=== PATIENT | female | born 1965 | race Caucasian/White ===

== ENCOUNTER 2023-07-08 08:40 | Observation (INO) | payer MEDICARE, MEDICAID, SELFPAY ==
[2023-07-08] VITALS (13 sets, daily range): BP systolic 148–205; BP diastolic 61–74; PULSE 45–55; RESP 18–20; TEMP 36.6–36.8; O2SAT 91–97; BMI 75.5
--- NOTE | 2023-07-08 08:44 | CTR_ITS ---
PROCEDURE INFORMATION: Exam: CT Head Without Contrast Exam date and time: 07/08/2023 8:45 AM Age: 57 years old Clinical indication: Stroke-like symptoms; Left upper extremity numbness/paresthesia; Additional info: Headache; Left arm numbness TECHNIQUE: Imaging protocol: Computed tomography of the head without contrast. Radiation optimization: All CT scans at this facility use at least one of these dose optimization techniques: automated exposure control; mA and/or kV adjustment per patient size (includes targeted exams where dose is matched to clinical indication); or iterative reconstruction. Other technique: STROKE PROTOCOL was implemented. COMPARISON: No relevant prior studies available. RADIATION DOSE METRICS: Total DLP (mGy-cm): 1131.8 FINDINGS: Brain: There is no evidence of acute parenchymal hemorrhage, extra-axial collection, or acute infarction. There is no mass effect, midline shift, or downward herniation. Cerebral ventricles: No ventriculomegaly. Paranasal sinuses: Visualized sinuses are unremarkable. No fluid levels. Mastoid air cells: Visualized mastoid air cells are well aerated. Bones/joints: Unremarkable. No acute fracture. Soft tissues: Unremarkable. CT/CT head thrombolytic [id number] IMPRESSION: No acute intracranial abnormality. ASSESSMENT: ASPECTS ([place] Stroke Program Early CT Score) is 10.
--- NOTE | 2023-07-08 08:48 | ECG_ITS ---
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 Measurements Intervals [place] Rate: 52 P: 27 MN: 174 QRS: 94 QRSD: 93 T: 38 QT: 415 QTc: 386 Interpretive Statements SINUS BRADYCARDIA BORDERLINE RIGHT AXIS DEVIATION [QRS AXIS > 90] LOW QRS VOLTAGE IN PRECORDIAL LEADS [QRS DEFLECTION < 1.0 mV IN CHEST LEADS] SEPTAL MYOCARDIAL INFARCTION , PROBABLY OLD [40+ ms Q WAVE IN V1/V2] Compared to ECG 10/10/2016 13:02:20 Sinus rhythm no longer present Myocardial infarct finding still present Electronically Signed On 07-08-2023 10:04:12 SEATING AND MOBILITY TECHNOLOGIST by Prakash Nugent M.D. [email or web address] [email or web address] [email or web address]/store/[id number]
--- NOTE | 2023-07-08 08:55 | W.ED.NEUROSD ---
HPI - Neuro Symptoms/Deficit General: Chief Complaint: Neuro Symptoms/Deficit Stated Complaint: HEADACHE; LEFT ARM NUMBNESS Time Seen by Provider: 07/08/23 08:49 Source: patient Mode of arrival: EMS History of Present Illness: 57-year-old female presents emergency room with complaints of left-sided numbness and weakness. She went to bed last night at midnight was her usual state this morning woke up at around 7 AM with presence of symptoms chest discomfort pain into the left arm some numbness in the left arm face she feels like she has some weakness in the left arm and leg. Blood glucose 111. Patient previously had a CVA in December 2022 at which time she received tPA. EMS reported left arm droop but did not note any on exam Onset (ago): hour(s) (8 hours 40 minutes) Time: 08:40 Last Observed Normal: 00:00 Location: left face and left arm Severity: mild Quality: weak and numb Relieving factors: none Exacerbating factors: none Context: other (Wake-up symptoms) On Anticoagulants: No Associated symptoms: Deny chest pain, cough, diaphoresis, fevers/chills, headache(s), anorexia, malaise, nausea, seizures, short of breath, syncope, tingling, vertigo, vomiting or weakness Treatments Prior to Arrival: none Review of Systems Const: Denies: fever(s), chills, malaise or diaphoresis Card: Denies: chest pain or syncope Resp: Denies: dyspnea GI: Denies: abdominal pain, nausea or vomiting : Denies: dysuria, urinary frequency or urinary urgency Musc: Denies: neck pain or back pain Skin/Breast: Denies: rash Neuro: Reports: numbness in extremities and weakness in extremities; Denies: headache(s) or vertigo [facility] ED PFSH: Medical History Diabetes HTN (hypertension) NIH stroke score NIHSS: Level Of Consciousness - 1a: 0 Level Of Consciousness Questions - 1b: Both Correct Level Of Consciousness Commands - 1c: Both Correct Best Gaze - 2: Normal Visual [place] - 3: No Visual Loss Facial Palsy - 4: Normal Motor Arm Right - 5: No Drift Motor Arm Left - 5: No Drift Motor Leg Right - 6: No Drift Motor Leg Left - 6: No Drift Limb Ataxia - 7: Present In One Limb Sensory - 8: Mild To Moderate Loss Best Language - 9: No Aphasia Dysarthia - 10: Normal Extinction And Inattention - 11: 0 Score: Total Score: 2 Physical Exam Const: COMMON NORMALS: no acute distress GENERAL APPEARANCE: cooperative and comfortable ORIENTATION/CONSCIOUSNESS: Yes awake, Yes oriented to person, Yes oriented to place and Yes oriented to time HENMT: COMMON NORMALS: normocephalic, atraumatic and hearing grossly normal bilaterally HEAD & SCALP: normocephalic and atraumatic Resp: COMMON NORMALS: normal respiratory effort, No retractions, No use of accessory muscles and clear to auscultation bilaterally AUSCULTATION: clear to auscultation bilaterally Cardio: COMMON NORMALS: regular rate, regular rhythm and No murmurs present (Cardio) RATE: regular rate RHYTHM: regular rhythm GI: COMMON NORMALS: Soft to palpation and No hepatosplenomegaly present AUSCULTATION: Yes normoactive bowel sounds PALPATION: Yes Soft to palpation, No Tenderness to palpation present (GI), No Guarding due to palpation present (GI) and Yes No hepatosplenomegaly present Extremity: COMMON NORMALS: normal to inspection, capillary refill normal, no clubbing, cyanosis or edema, no calf tenderness and no pedal edema Neuro: SENSORIUM/ORIENTATION: Yes oriented to person, Yes oriented to place and Yes oriented to time Skin: COMMON NORMALS: no rashes or lesions noted GENERAL SKIN EXAM: no rashes or lesions noted Course Vital Signs: Vital signs: Vital Signs Temperature 97.7 F 07/09/23 07:57 Pulse Rate 47 L 07/09/23 08:18 Respiratory Rate 16 07/09/23 08:18 Blood Pressure 141/78 07/09/23 07:57 Pulse Oximetry 97 07/09/23 11:07 Oxygen Delivery Me thod Nasal Cannula 07/09/23 08:18 Oxygen Flow Rate 3 07/09/23 08:18 MDM - Neuro Symptoms/Deficit Medical Decision Making Stroke score of ana was 2 earlier was likely higher. Not a candidate for thrombolytics or embolectomy. Will admit for further evaluation and secondary stroke prevention discussed with hospitalist orders written. Patient Because she still is having some residual symptoms. Medical Records I reviewed the patient's medical records. Lab Data I reviewed the patient's lab results. 07/09/23 02:15 07/09/23 02:[address] 07/08/23 08:44 IMPRESSION: No acute intracranial abnormality. ASSESSMENT: ASPECTS ([place] Stroke Program Early CT Score) is 10. Laboratory Results WBC 8.18 10^3/uL (3.29-11.43) 07/08/23 08:59 RBC 4.29 10^6/uL (3.85-5.65) 07/08/23 08:59 Hgb 13.00 g/dL (11.27-16.99) 07/08/23 08:59 Hct 39.6 % (36-47) 07/08/23 08:59 MCV 92.3 fl (85-98) 07/08/23 08:59 MCH 30.3 pg (27-33) 07/08/23 08:59 MCHC 32.8 g/dL (30-55) 07/08/23 08:59 RDW 13.1 % (12.1-15.1) 07/08/23 08:59 Plt Count 263 10^3/cmm (157-399) 07/08/23 08:59 MPV 10.7 fL (7.4-10.4) H 07/08/23 08:59 Neut % (Auto) 60.0 % 07/08/23 08:59 Lymph % (Auto) 28.1 % 07/08/23 08:59 [place] % (Auto) 8.2 % 07/08/23 08:59 Eos % (Auto) 2.6 % 07/08/23 08:59 Baso % (Auto) 0.6 % 07/08/23 08:59 Neut # (Auto) 4.91 10^3/uL (1.8-7.7) 07/08/23 08:59 Lymph # (Auto) 2.3 10^3/uL (0.8-4.8) 07/08/23 08:59 [place] # (Auto) 0.7 10^3/uL (0.2-0.9) 07/08/23 08:59 Eos # (Auto) 0.2 10^3/uL (0.0-0.8) 07/08/23 08:59 Baso # (Auto) 0.1 10^3/uL (0.0-0.1) 07/08/23 08:59 Nucleated RBC % (auto) 0 % 07/08/23 08:59 Nucleated RBCs # 0.0 /100WBC 07/08/23 08:59 PT 13.60 SECONDS (12.1-14.9) 07/08/23 08:59 INR 1.01 (0.8-1.2) 07/08/23 08:59 APTT 24.6 SECONDS (23.9-36.7) 07/08/23 08:59 Sodium 142 mmol/L (136-145) 07/08/23 08:59 Potassium 3.9 mmol/L (3.5-5.1) 07/08/23 08:59 Chloride 107 mmol/L (98-107) 07/08/23 08:59 Carbon Dioxide 25 mmol/L (22-29) 07/08/23 08:59 Anion Gap 13.9 (5-19) 07/08/23 08:59 BUN 14 mg/dL (6-20) 07/08/23 08:59 Creatinine 0.7 mg/dL (0.5-0.9) 07/08/23 08:59 GFR Calculation 85.6 mL/min (90-130) L 07/08/23 08:59 Glucose 109 mg/dL (65-115) 07/08/23 08:59 Estimat Average Glucose 111 07/08/23 08:59 Hemoglobin A1c 5.5 % (4.0-6.0) 07/08/23 08:59 Calculated Osmolality 295 mOsm/kg (285-295) 07/08/23 08:59 Calcium 8.5 mg/dL (8.5-10.5) 07/08/23 08:59 Total Bilirubin 0.5 mg/dL (0.15-1.2) 07/08/23 08:59 AST 11 U/L (0-32) 07/08/23 08:59 ALT 16 U/L (0-33) 07/08/23 08:59 Alkaline Phosphatase 51 U/L (35-105) 07/08/23 08:59 Troponin T Baseline 7 ng/L (0-10) 07/08/23 08:59 Total Protein 6.8 g/dL (6.6-8.7) 07/08/23 08:59 Albumin 3.4 g/dL (3.5-5.2) L 07/08/23 08:59 Globulin 3.4 g/dL (1.3-4.6) 07/08/23 08:59 Urine Color Straw (Yellow) 07/08/23 09:29 Urine Appearance Clear (CLEAR) 07/08/23 09:29 Urine pH 5 (5-7) 07/08/23 09:29 Ur Specific [place] 1.015 (1.005-1.030) 07/08/23 09:29 Urine Protein Neg (Negative) 07/08/23 09:29 Urine Glucose (UA) Norm (Normal) 07/08/23 09:29 Urine Ketones Negative (Negative) 07/08/23 09:29 Urine Blood Neg (Negative) 07/08/23 09:29 Urine Nitrate Negative (Negative) 07/08/23 09:29 Urine Bilirubin Neg (Negative) 07/08/23 09:29 Urine Urobilinogen Norm mg/dL (Negative) 07/08/23 09:29 Ur Leukocyte Esterase Negative (Negative) 07/08/23 09:29 Urine Opiates Screen Positive ng/mL (Negative) H 07/08/23 09:29 Ur Barbiturates Screen Negative ng/mL (Negative) 07/08/23 09:29 Ur Phencyclidine Scrn Negative ng/mL (Negative) 07/08/23 09:29 Ur Amphetamines Screen Negative ng/mL (Negative) 07/08/23 09:29 U Benzodiazepines Scrn Negative ng/mL (Negative) 07/08/23 09:29 Urine Cocaine Screen Negative ng/mL (Negative) 07/08/23 09:29 U Marijuana (THC) Screen Negative ng/mL (Negative) 07/08/23 09:29 All radiology interpretation(s) finalized by discharge Discharge Plan Discharge Patient Disposition: Admitted As Inpatient Admit Provider: Coco Hassan Clinical Impression: Transient cerebral ischemia Condition: Stable Coding Level of Care Code ED Wrapping Machine Operator for Idania Kennedy
[2023-07-08 09:04] LABS: Basophils # 0.1 10^3/uL (0.0-0.1); Basophils % 0.6 %; Eosinophils # 0.2 10^3/uL (0.0-0.8); Eosinophils % 2.6 %; Hematocrit 39.6 % (36-47); Lymphocytes # 2.3 10^3/uL (0.8-4.8); Lymphocytes % 28.1 %; Mean Corpuscular HGB Conc 32.8 g/dL (30-55); Mean Corpuscular Hemoglobin 30.3 pg (27-33); Mean Corpuscular Volume 92.3 fl (85-98); Mean Platelet Volume 10.7 fL (7.4-10.4); Monocytes # 0.7 10^3/uL (0.2-0.9); Monocytes % 8.2 %; Neutrophils # 4.91 10^3/uL (1.8-7.7); Nucleated Red Blood Cells % 0 %; Platelet Count 263 10^3/cmm (157-399); Red Blood Count 4.29 10^6/uL (3.85-5.65); Red Cell Distribution Width 13.1 % (12.1-15.1); White Blood Count 8.18 10^3/uL (3.29-11.43)
[2023-07-08 09:15] LABS: Partial Thromboplastin Time 24.6 SECONDS (23.9-36.7)
[2023-07-08 09:24] LABS: Alanine Aminotransferase 16 U/L (0-33); Albumin Level 3.4 g/dL (3.5-5.2); Alkaline Phosphatase 51 U/L (35-105); Anion Gap 13.9 (5-19); Aspartate Amino Transferase 11 U/L (0-32); Blood Urea Nitrogen 14 mg/dL (6-20); Calcium 8.5 mg/dL (8.5-10.5); Carbon Dioxide 25 mmol/L (22-29); Chloride 107 mmol/L (98-107); Globulin 3.4 g/dL (1.3-4.6); Glomerular Filtration Rate 85.6 mL/min (90-130); Glucose 109 mg/dL (65-115); Osmolality Calculated 295 mOsm/kg (285-295); Potassium 3.9 mmol/L (3.5-5.1); Sodium 142 mmol/L (136-145); Total Bilirubin 0.5 mg/dL (0.15-1.2); Total Protein 6.8 g/dL (6.6-8.7)
--- NOTE | 2023-07-08 09:28 | PC.NURSE ---
PT CALLED REQUESTING PT BE TRANSFERRED TO [facility] DUE TO HER DOCTOR BEING THERE. PT NOTIFIED OF PROCEDURE FOR TRANSFER. PT STILL REQUESTING TO BE TRANSFERRED AND STATED THEY KNOW WHAT TO DO UP THERE.
[2023-07-08 09:34] LABS: Add Urine Microscopic? NO; Charge for UA Resulting for Rev
[2023-07-08 09:38] LABS: Bilirubin Urine Neg (Negative); Blood Urine Neg (Negative); Glucose Urine UA Norm (Normal); Ketones Urine Negative (Negative); Leukocyte Esterase Urine Negative (Negative); Nitrate Urine Negative (Negative); Protein Urine Neg (Negative); Specific Gravity, Urine 1.015 (1.005-1.030); Urine Appearance Clear (CLEAR); Urine Color Straw (Yellow); Urobilinogen Urine Norm (Negative); pH Urine 5 (5-7)
[2023-07-08 09:46] LABS: Amphetamines Screen Urine Negative (Negative); Barbiturates Screen Urine Negative (Negative); Benzodiazepines Screen Urine Negative (Negative); Cocaine Screen Urine Negative (Negative); Opiate Screen Urine Positive (Negative); PCP Screen Urine Negative (Negative); THC Screen Urine Negative (Negative)
[2023-07-08 10:00] LABS: INR 1.01 (0.8-1.2)
[2023-07-08 10:11] LABS: Troponin(5th) Baseline 7 ng/L (0-10)
--- NOTE | 2023-07-08 10:37 | PC.PHAR ---
Addendum entered by Pamela Obrien 07/08/23 11:13: [facility] [phone] Original Note: pt states she takes care of her own medications-pt states she ran out of her metoprolol succ er 50mg daily about a month ago ext shows last filled 03/02/23 30d/s pt states she has been taking her husbands metoprolol tartrate 50mg qam pts husbands paulie moya bottle had tartrate 50mg bid-pt had kcl 10meq daily bottle with her pt states she takes 2 tabs (=20meq) daily-pt states she takes lasix 20mg qam ext doesnt show when last filled-cymbalta 60mg bid filled last in 2021 at [facility] [phone] called not open on weekends to verify if filled more recently pt states takes 60mg daily-ozempic last filled jan 2022 [facility] [place]-notes are made in the pharmacy comments
--- NOTE | 2023-07-08 11:51 | ECG_ITS ---
[facility] Test Date: 2023-07-08 Pat Name: Miri Sanchez Department: Room: 271 Gender: Female Ship Manager: : 1965 Requested By: Sudhakar Posadas Order Number: [id number] Christina MD: Prakash Nugent M.D. Measurements Intervals [place] Rate: 49 P: 9 [place]: 172 QRS: 48 QRSD: 84 T: 51 QT: 418 QTc: 378 Interpretive Statements SINUS BRADYCARDIA WITH OCCASIONAL VENTRICULAR PREMATURE COMPLEXES LOW QRS VOLTAGE IN PRECORDIAL LEADS [QRS DEFLECTION < 1.0 mV IN CHEST LEADS] ANTEROSEPTAL MYOCARDIAL INFARCTION , PROBABLY OLD [40+ ms Q WAVE IN V1-V4] Compared to ECG 07/08/2023 08:57:44 Ventricular premature complex(es) now present Myocardial infarct finding still present Electronically Signed On 07-10-2023 9:39:47 WILDLIFE BIOSTATION RESEARCH ECOLOGIST by Prakash Nugent M.D. [id number]
--- NOTE | 2023-07-08 12:48 | P.HP_ITS ---
Providers/Chief Complaint 2 Admitting Physician: Coco Hassan MD Primary Care Provider: Kendall Toro MD Chief Complaint: HEADACHE; LEFT ARM NUMBNESS History of Present Illness Miri Sanchez is a 57 year old female with history of stroke status post tPA 2 years ago presented today with chief complaint of left-sided numbness around her face and left shoulder that prompted her visit to the ER she was was not considered tPA candidate because her NIH is 2 and unknown last known well time. By the time I am seeing her she is not experiencing any symptoms NIH is 0 She is hemodynamic stable other than bradycardia. She is diabetic takes Ozempic. She is attending birthday of her daughter here otherwise lives in [place]. Hemodynamically stable I requested PT OT and echo. No active chest pain shortness of breath or recent fever. No active diarrhea. Good strength to upper and lower extremities. Review of Systems 2 Const: Denies: fever(s) Eyes: Denies: change in vision ENMT: Denies: throat pain Card: Denies: chest pain Resp: Denies: dyspnea GI: Denies: abdominal pain : Denies: flank pain Musc: Denies: neck pain Skin/Breast: Denies: rash Neuro: Reports: numbness in extremities; Denies: headache(s) Psych: Denies: anxiety Medications/Allergies Home Medications Medication Instructions Recorded Confirmed Last Taken Type atorvastatin 40 mg tablet 40 mg PO BEDTIME 07/08/23 07/08/23 Unknown History bupropion HCl 150 mg 24 hr tablet, 450 mg PO QAM 07/08/23 07/08/23 07/08/23 History extended release duloxetine 60 mg capsule,delayed 60 mg PO QAM 07/08/23 07/08/23 Unknown History release (Cymbalta) furosemide 20 mg tablet (Lasix) 20 mg PO QAM 07/08/23 07/08/23 Unknown History ibuprofen 200 mg tablet 800 mg PO TID PRN Pain 07/08/23 07/08/23 Unknown History metoprolol succinate 50 mg 50 mg PO QAM 07/08/23 07/08/23 1 Month Ago History tablet,extended release 24 hr ~06/09/23 out for a month metoprolol tartrate 50 mg tablet 50 mg PO QAM 07/08/23 07/08/23 Unknown History potassium chloride 10 mEq 20 meq PO QAM 03/07/0107/08/23 07/08/23 History tablet,extended release semaglutide 0.25 mg or 0.5 mg (2 0.8 mg SUBCUT Q7D 07/08/23 07/08/23 Unknown History mg/3 mL) subcutaneous pen injector (Ozempic) Allergies Allergy/AdvReac Type Severity Reaction Status Date / Time hydromorphone [From Dilaudid] Allergy ADR-Shakine Verified 07/08/23 09:01 ss PFSH Acute 2 PFSH: Medical History Diabetes HTN (hypertension) Vitals/I&O/Wt Last Vital Signs Temp 98.1 F 07/08/23 08:54 Pulse 45 L 07/08/23 11:09 Resp 20 H 07/08/23 08:54 BP 148/61 07/08/23 11:09 Pulse Ox 91 07/08/23 11:09 O2 Del Method Room Air 07/08/23 11:00 Weight last 48 hrs Weight 184.612 kg Physical Exam 2 Narrative: Analgesia Awake and alert Morbid obese Good strength upper lower extremities Pleasant Awake and alert Bradycardia Mild hypertension Abdomen distended nontender Pleasant cooperative Nonfocal neuroexam Data 07/08/23 08:59 07/08/23 08:59 A&P Assessment and plan (1) TIA (transient ischemic attack): Plan TIA Start aspirin and Plavix Check A1c level B12 and TSH Likely will be able to discharge by tomorrow Check echo Hold beta-rin for bradycardia She is full code Cardiac consistent carb diet DVT prophylaxis added Type 2 diabetes Check A1c level, add medium dose sliding Hypertension: I will hold off on metoprolol for now we will add lisinopril which will be more beneficial considering history of diabetes Attestations 2 Medical Necessity Statement*: Discharge within 48 hours anticipated Diagnoses TIA (transient ischemic attack) G45.9
[2023-07-08] MEDS: acetaminophen 500 mg Tablet PO ×2 (13:51→20:23)
[2023-07-08] MEDS: enoxaparin 40 mg/0.4 mL Syringe SUBCUT (13:52)
[2023-07-08 14:21] LABS: Vitamin B12 262 pg/mL (232-1245)
[2023-07-08 14:25] LABS: Estmated Average Glucose 111; Hemoglobin A1C 5.5 % (4.0-6.0)
[2023-07-08] MEDS: lisinopril 10 mg Tablet PO (16:01)
[2023-07-08 16:37] LABS: Glucose Point of Care 113 mg/dL (70-110)
--- NOTE | 2023-07-08 17:24 | ECG_ITS ---
[facility] Test Date: 2023-07-08 Pat Name: Miri Sanchez Department: Room: 271 Gender: Female Advertising Coordinator: : 1965 Requested By: Sudhakar Posadas Order Number: [id number] Christina MD: Prakash Nugent M.D. Measurements Intervals [place] Rate: 45 P: 41 [place]: 160 QRS: 26 QRSD: 98 T: 40 QT: 447 QTc: 389 Interpretive Statements SINUS BRADYCARDIA LOW QRS VOLTAGE IN PRECORDIAL LEADS [QRS DEFLECTION < 1.0 mV IN CHEST LEADS] ANTERIOR MYOCARDIAL INFARCTION , PROBABLY OLD [40+ ms Q WAVE AND/OR ST/T ABNORMALITY IN V3/V4] Compared to ECG 07/08/2023 14:28:34 Ventricular premature complex(es) no longer present Myocardial infarct finding still present Electronically Signed On 07-10-2023 9:38:55 SLUBBER TENDER by Prakash Nugent M.D. [id number]
[2023-07-08 21:29] LABS: Glucose Point of Care 91 mg/dL (70-110)
[2023-07-09] VITALS: BP 145/66; PULSE 46; RESP 17; TEMP 36.5; O2SAT 99
[2023-07-09 03:46] VITALS: BP 155/67; PULSE 46; RESP 18; TEMP 36.5; O2SAT 99
[2023-07-09 04:21] LABS: Basophils % 0.5 %; Eosinophils # 0.2 10^3/uL (0.0-0.8); Eosinophils % 2.7 %; Lymphocytes # 2.9 10^3/uL (0.8-4.8); Lymphocytes % 38.9 %; Mean Corpuscular HGB Conc 31.6 g/dL (30-55); Mean Corpuscular Hemoglobin 30.1 pg (27-33); Mean Corpuscular Volume 95.2 fl (85-98); Mean Platelet Volume 12.1 fL (7.4-10.4); Monocytes # 0.7 10^3/uL (0.2-0.9); Monocytes % 9.6 %; Neutrophils # 3.55 10^3/uL (1.8-7.7); Nucleated Red Blood Cells % 0 %; Platelet Count 229 10^3/cmm (157-399); Red Blood Count 3.99 10^6/uL (3.85-5.65); Red Cell Distribution Width 13.2 % (12.1-15.1)
[2023-07-09 04:50] LABS: Anion Gap 11.4 (5-19); Blood Urea Nitrogen 16 mg/dL (6-20); Calcium 8.4 mg/dL (8.5-10.5); Carbon Dioxide 26 mmol/L (22-29); Chloride 106 mmol/L (98-107); Creatinine Clr Calc Pharmacy 121.0311; Glomerular Filtration Rate 73.4 mL/min (90-130); Glucose 79 mg/dL (65-115); Magnesium 2.1 mg/dL (1.7-2.3); Osmolality Calculated 290 mOsm/kg (285-295); Phosphorus 3.9 mg/dL (2.5-4.5); Potassium 3.4 mmol/L (3.5-5.1); Sodium 140 mmol/L (136-145)
[2023-07-09 06:05] VITALS: PULSE 46
[2023-07-09 06:23] VITALS: BMI 75.5
[2023-07-09 07:24] LABS: Glucose Point of Care 91 mg/dL (70-110)
[2023-07-09 07:57] VITALS: BP 141/78; PULSE 47; RESP 20; TEMP 36.5; O2SAT 99
[2023-07-09] MEDS: aspirin 81 mg EC Tablet PO (08:07)
[2023-07-09] MEDS: clopidogrel 75 mg Tablet PO (08:07)
[2023-07-09] MEDS: lisinopril 10 mg Tablet PO (08:07)
[2023-07-09 08:18] VITALS: PULSE 47; RESP 16; O2SAT 99
--- NOTE | 2023-07-09 10:23 | P.DS_ITS ---
Discharge Providers Date of Admission: 07/08/23 10:14 Date of Discharge: July 09, 2023 Attending Provider at Admission: Coco Hassan MD Attending Provider at Discharge: Coco Hassan MD Primary Care Provider: Kendall Toro MD Diagnoses at Discharge Discharge Diagnosis (1) TIA (transient ischemic attack): Status: Acute Reason for Visit Reason for Visit: HEADACHE; LEFT ARM NUMBNESS Hospital Course Hospital Course 57-year female who was admitted for management evaluation of left-sided numbness of her body, patient woke up around 7 AM and noticed these changes which were not present when she went to bed, she was deemed not a candidate for TNKase for NIH of 2, she was diagnosed with TIA, remained asymptomatic, she remained bradycardic in the hospital she was taking metoprolol at home, she described her symptoms as feeling little dizzy but no falls, at home uses 2 L of oxygen at nighttime, in the daytime she is requiring 3 L, patient lives in [place] and wants to follow-up with her primary care doctor, for TIA she will get aspirin and Plavix 21-day regimen then she may resume aspirin along atorvastatin I have requested her not to take metoprolol anymore for bradycardia. EKG shows sinus bradycardia. Physical Exam Narrative: And I 0 GCS 15 Nonfocal neuroexam Pleasant and cooperative Discharge Data Studies Completed and Pending Completed Studies During Hospitalization Category Date Time Status CT head thrombolytic [id number] Stat Cat Scan 07/08/23 08:44 Completed Pending at discharge Category Date Time Status CV. echo complete* [id number] Routine Ultrasound 07/09/23 06:00 Ordered Radiology Impressions Head CT 07/08/23 08:44 IMPRESSION: No acute intracranial abnormality. ASSESSMENT: ASPECTS ([place] Stroke Program Early CT Score) is 10. Laboratory Results WBC 7.40 10^3/uL (3.29-11.43) 07/09/23 02:15 RBC 3.99 10^6/uL (3.85-5.65) 07/09/23 02:15 Hgb 12.00 g/dL (11.27-16.99) 07/09/23 02:15 Hct 38.0 % (36-47) 07/09/23 02:15 MCV 95.2 fl (85-98) 07/09/23 02:15 MCH 30.1 pg (27-33) 07/09/23 02:15 MCHC 31.6 g/dL (30-55) 07/09/23 02:15 RDW 13.2 % (12.1-15.1) 07/09/23 02:15 Plt Count 229 10^3/cmm (157-399) 07/09/23 02:15 MPV 12.1 fL (7.4-10.4) H 07/09/23 02:15 Neut % (Auto) 48.0 % 07/09/23 02:15 Lymph % (Auto) 38.9 % 07/09/23 02:15 [place] % (Auto) 9.6 % 07/09/23 02:15 Eos % (Auto) 2.7 % 07/09/23 02:15 Baso % (Auto) 0.5 % 07/09/23 02:15 Neut # (Auto) 3.55 10^3/uL (1.8-7.7) 07/09/23 02:15 Lymph # (Auto) 2.9 10^3/uL (0.8-4.8) 07/09/23 02:15 [place] # (Auto) 0.7 10^3/uL (0.2-0.9) 07/09/23 02:15 Eos # (Auto) 0.2 10^3/uL (0.0-0.8) 07/09/23 02:15 Baso # (Auto) 0.0 10^3/uL (0.0-0.1) 07/09/23 02:15 Nucleated RBC % (auto) 0 % 07/09/23 02:15 Nucleated RBCs # 0.0 /100WBC 07/09/23 02:15 PT 13.60 SECONDS (12.1-14.9) 07/08/23 08:59 INR 1.01 (0.8-1.2) 07/08/23 08:59 APTT 24.6 SECONDS (23.9-36.7) 07/08/23 08:59 Sodium 140 mmol/L (136-145) 07/09/23 02:15 Potassium 3.4 mmol/L (3.5-5.1) L 07/09/23 02:15 Chloride 106 mmol/L (98-107) 07/09/23 02:15 Carbon Dioxide 26 mmol/L (22-29) 07/09/23 02:15 Anion Gap 11.4 (5-19) 07/09/23 02:15 BUN 16 mg/dL (6-20) 07/09/23 02:15 Creatinine 0.8 mg/dL (0.5-0.9) 07/09/23 02:15 GFR Calculation 73.4 mL/min (90-130) L 07/09/23 02:15 Glucose 79 mg/dL (65-115) 07/09/23 02:15 POC Glucose 91 mg/dL (70-110) 07/09/23 07:19 Estimat Average Glucose 111 07/08/23 08:59 Hemoglobin A1c 5.5 % (4.0-6.0) 07/08/23 08:59 Calculated Osmolality 290 mOsm/kg (285-295) 07/09/23 02:15 Calcium 8.4 mg/dL (8.5-10.5) L 07/09/23 02:15 Phosphorus 3.9 mg/dL (2.5-4.5) 07/09/23 02:15 Magnesium 2.1 mg/dL (1.7-2.3) 07/09/23 02:15 Total Bilirubin 0.5 mg/dL (0.15-1.2) 07/08/23 08:59 AST 11 U/L (0-32) 07/08/23 08:59 ALT 16 U/L (0-33) 07/08/23 08:59 Alkaline Phosphatase 51 U/L (35-105) 07/08/23 08:59 Troponin T Baseline 7 ng/L (0-10) 07/08/23 08:59 Troponin T 120 Minute 6.00 ng/L (0-10) 07/08/23 11:03 Delta Troponin T -1.00 ABS# (0-10) L 07/08/23 11:03 Troponin T Hi Sens 6Hr 6.00 ng/L (0-10) 07/08/23 15:50 Troponin T Hi Sens 6Hr Delta -1.00 ng/L (0-12) L 07/08/23 15:50 Total Protein 6.8 g/dL (6.6-8.7) 07/08/23 08:59 Albumin 3.4 g/dL (3.5-5.2) L 07/08/23 08:59 Globulin 3.4 g/dL (1.3-4.6) 07/08/23 08:59 Vitamin B12 262 pg/mL (232-1245) 07/08/23 11:03 TSH 2.70 uIU/mL (0.27-4.20) 07/08/23 11:03 Urine Color Straw (Yellow) 07/08/23 09:29 Urine Appearance Clear (CLEAR) 07/08/23 09:29 Urine pH 5 (5-7) 07/08/23 09:29 Ur Specific [place] 1.015 (1.005-1.030) 07/08/23 09:29 Urine Protein Neg (Negative) 07/08/23 09:29 Urine Glucose (UA) Norm (Normal) 07/08/23 09:29 Urine Ketones Negative (Negative) 07/08/23 09:29 Urine Blood Neg (Negative) 07/08/23 09:29 Urine Nitrate Negative (Negative) 07/08/23 09:29 Urine Bilirubin Neg (Negative) 07/08/23 09:29 Urine Urobilinogen Norm mg/dL (Negative) 07/08/23 09:29 Ur Leukocyte Esterase Negative (Negative) 07/08/23 09:29 Urine Opiates Screen Positive ng/mL (Negative) H 07/08/23 09:29 Ur Barbiturates Screen Negative ng/mL (Negative) 07/08/23 09:29 Ur Phencyclidine Scrn Negative ng/mL (Negative) 07/08/23 09:29 Ur Amphetamines Screen Negative ng/mL (Negative) 07/08/23 09:29 U Benzodiazepines Scrn Negative ng/mL (Negative) 07/08/23 09:29 Urine Cocaine Screen Negative ng/mL (Negative) 07/08/23 09:29 U Marijuana (THC) Screen Negative ng/mL (Negative) 07/08/23 09:29 Vitals Last Vital Signs Temp 97.7 F 07/09/23 07:57 Pulse 47 L 07/09/23 08:18 Resp 16 07/09/23 08:18 BP 141/78 07/09/23 07:57 Pulse Ox 99 07/09/23 08:18 O2 Del Method Nasal Cannula 07/09/23 08:18 O2 Flow Rate 3 07/09/23 08:18 Discharge Plan Discharge Patient Disposition: Home Condition: Stable Prescriptions: New aspirin 81 mg Tablet,Delayed Release (Dr/Ec) 81 mg PO DAILY Qty: 90 3RF clopidogrel 75 mg Tablet 75 mg PO DAILY Qty: 20 0RF lisinopril 10 mg Tablet 10 mg PO DAILY Qty: 90 2RF Continued potassium chloride 10 mEq tablet extended release 20 meq PO QAM ibuprofen 200 mg Tablet 800 mg PO TID PRN (Reason: Pain) Lasix 20 mg Tablet 20 mg PO QAM bupropion HCl 150 mg tablet extended release 24 hr 450 mg PO QAM Cymbalta 60 mg Capsule,Delayed Release(Dr/Ec) 60 mg PO QAM Ozempic 0.25 mg or 0.5 mg (2 mg/3 mL) Pen Injector 0.8 mg SUBCUT Q7D Rx Instructions: on monday atorvastatin 40 mg tablet 40 mg PO BEDTIME Qty: 60 0RF Discontinued metoprolol succinate 50 mg tablet extended release 24 hr 50 mg PO QAM metoprolol tartrate 50 mg Tablet 50 mg PO QAM Discharge Orders: Discharge Order (Routine); Ordered 07/09/23 Ordered By: Coco Hassan Referrals: Kendall Toro MD [Primary Care Provider] - Patient Instructions: Opioid Safety Discharge Attestations Time Spent in Discharge Care*: greater than 30 min Quality Metrics Clinical Quality Measures [ No reported AMI, CVA or VTE this stay] Coding Level of Care Code Acute Code for [facility] Fwd Diagnoses TIA (transient ischemic attack) G45.9
--- NOTE | 2023-07-09 10:59 | PC.NURSE ---
Discharge pending home o2 eval and shower.
[2023-07-09 11:07] VITALS: O2SAT 96; O2SAT 97
--- NOTE | 2023-07-09 13:29 | PC.NURSE ---
Pt was awaiting delivery of wheelchair, however, HOME is unable to deliver this today as it is out of stock.
== END 2023-07-09 13:30 | disposition home or self-care (01) ==
LOC: ER 09:14 → MEDSURG 11:16
PROVIDERS: Admitting Provider Internal Medicine; Emergency Provider Family Medicine; PCP Family Medicine; Visit Provider Internal Medicine
DX: G45.9 Transient cerebral ischemic attack, unspecified (principal); R29.702 NIHSS score 2; E11.9 Type 2 diabetes mellitus without complications; I10 Essential (primary) hypertension; E66.01 Morbid (severe) obesity due to excess calories; Z68.45 Body mass index [BMI] 70 or greater, adult
CPT/HCPCS: 36415; 36416; 70450; 80048; 80053; 80306; 81003; 82607; 82962; 83036; 83735; 84100; 84443; 84484; 85025; 85610; 85730; 93005; 94760; 96372; 97161; 97530; 99285; G0378; J1650